=== PATIENT | female | born 2000 | race Hispanic/Latino ===

== ENCOUNTER 2025-05-08 02:33 | Emergency (ER) | payer BC ==
[~2025-05-08] VITALS: Ht 175.3 cm; Wt 90.7 kg
[2025-05-08 02:55] LABS: APPEARANCE,URINE CLOUDY (CLEAR); BILIRUBIN,URINE NEGATIVE (NEGATIVE); COLOR,URINE YELLOW (YELLOW); GLUCOSE, URINE (UA) NEGATIVE (NEGATIVE); KETONES,URINE 5 mg/dL (NEGATIVE); LEUKOCYTE ESTERASE ,URINE 500 Leu/uL (NEGATIVE); NITRATE,URINE NEGATIVE (NEGATIVE); OCCULT BLOOD,URINE NEGATIVE (NEGATIVE); PH,URINE 5.5 (5.0-8.0); PROTEIN,URINE NEGATIVE (NEGATIVE); UROBILINOGEN,URINE 0.2 mg/dL (0.2-1.0)
[2025-05-08 02:56] LABS: ADD UA MICROSCOPIC YES
[2025-05-08 02:57] LABS: HCG,QUALITATIVE URINE NEGATIVE (NEGATIVE)
[2025-05-08 02:58] LABS: BACTERIA,URINE MOD /HPF (None Seen); MUCUS,URINE FEW LPF (None Seen); SQUAMOUS EPITHELIAL CELL,UR MANY /HPF (0-2)
--- NOTE | 2025-05-08 02:59 | ERN ---
ED Note History of Present Illness Stated Complaint: REQUESTING STD TEST Chief Complaint: Sexually Transmitted Disease Time Seen by MD: 02:52 Dictation: This is a 24-year-old female who presented to the emergency room at 2:55 a.m. requesting an STD test. Apparently she has been with a man intimate sexually last week multiple times and found out that he was unfaithful. She stated that she started having foul-smelling bluish green discharge from vagina for the past 2-3 days and she wanted to get herself checked out. No fever chills or rigors. No burning micturition Temperature 98.4 pulse 78 respirations 16 blood pressure 138/84 with a pulse oximetry of 100% on room air She gives a history of previous chlamydial infection as well as gonorrhea Allergies: Coded Allergies: Penicillins (Unverified Allergy, Unknown, 05/08/25) albuterol (Unverified Allergy, Unknown, 05/08/25) Past Medical History Past Medical History: No Pertinent History Surgical History: None Family History: Negative Social History: Negative LMP: April 17, 2025 RN Note Reviewed/Agreed w/PFSH: Yes Review of System Dictation Constitutional: Negative for fever,chills, and weight loss Eyes: Negative for injury, pain,redness, and discharge ENT: Negative for injury,pain or swelling Cardiovascular: Negative for chest pain, palpitations, and edema Respiratory: Negative for shortness of breath, cough, and wheezing, Abdomen/GI: Negative for abdominal pain, nausea, vomiting, diarrhea, and constipation Back: Negative for injury and pain : Negative for injury, bleeding and positive for vaginal discharge MS/Extremity: Negative for injury and deformity Skin: Negative for rash, and discoloration Neuro: Negative for headache, weakness, numbness, tingling, and seizure Psych: Negative for suicide ideation, homicidal ideation, and hallucinations Initial Vital Sign VS Vital Signs Date Time Temp Pulse Resp B/P (MAP) Pulse Ox O2 Delivery O2 Flow Rate FiO2 05/08/25 02:35 98.4 78 16 138/84 100 Room Air Physical Exam Dictation General: awake, alert, NAD Head/Face: Normocephalic, atraumatic Eyes: PERRL, EOMI, vision at baseline ENT: oral cavity clear, TMs clear, no signs of infection Neck: Trachea midline, supple, no nuchal rigidity Cardiovascular: RRR, normal S1/S2, No MRGs, no JVD Respiratory: CTAB, no respiratory distress, No rales or wheezes Abdomen: Soft, non-tender, non-distended, normal bowel sounds, no guarding or rebound. Skin: Warm, dry, normal turgor, no rash MS/Extremity: Pulses equal, no cyanosis, neurovascular intact, FROM Neuro: COAx4, GCS 15, strength 5/5, CN 2-12 intact, normal cerebellar exam, normal gait, Psych: Normal behavior, mood, and affect normal Extremities-trace edema without any palpable cords, Homans sign is negative Results (Laboratory/Radiology) Laboratory/Radiology Laboratory Tests Test 05/08/25 02:47 Urine Color YELLOW (YELLOW) Urine Appearance CLOUDY (CLEAR) H Urine pH 5.5 (5.0-8.0) Urine Specific Amity 1.025 (1.001-1.031) Urine Protein NEGATIVE mg/dL (NEGATIVE) Urine Glucose (UA) NEGATIVE mg/dL (NEGATIVE) Urine Ketones 5 mg/dL (NEGATIVE) H Urine Occult Blood NEGATIVE (NEGATIVE) Urine Nitrate NEGATIVE (NEGATIVE) Urine Bilirubin NEGATIVE mg/dL (NEGATIVE) Urine Urobilinogen 0.2 mg/dL (0.2-1.0) Urine Leukocyte Esterase 500 Britton/uL (NEGATIVE) H Urine RBC 2-5 /HPF (0-1) H Urine WBC 2-5 /HPF (0-1) H Urine Squamous Epithelial Cells MANY /HPF (0-2) Urine Bacteria MOD /HPF (None Seen) Urine HCG, Qualitative NEGATIVE (NEGATIVE) Labs Reviewed?: Yes ED Course ED Course Orders Procedure Category Date Status Time Urinalysis Profile LAB 05/08/25 Complete 02:36 Chlamydia & Gc Pcr GLADIS 05/08/25 In Process 02:36 ,Urine Test LAB 05/08/25 Complete 02:36 Culture Urine GLADIS 05/08/25 In Process 02:56 Ceftriaxone 1g Vial PHA 05/08/25 Complete (Rocephine 1g Inj) 04:30 Azithromycin PHA 05/08/25 Complete (Zithromax) 04:30 Metronidazole (Flagyl) PHA 05/08/25 Complete 04:30 Current Medications Medications (Trade) Dose Ordered Sig/Raul Route PRN Reason Start Time Stop Time Status Last Admin Dose Admin Azithromycin (Zithromax) 500 mg ONCE ONCE PO 05/08/25 04:30 6/9/25 04:31 DC 05/08/25 04:29 Ceftriaxone Sodium (ROCEphine 1G INJ) 1 gm ONCE ONCE IM 05/08/25 04:30 05/08/25 04:31 DC 05/08/25 04:30 Metronidazole (flaGYL) 2,000 mg ONCE ONCE PO 05/08/25 04:30 05/08/25 04:31 DC 05/08/25 04:30 Vital Signs Date Time Temp Pulse Resp B/P (MAP) Pulse Ox O2 Delivery O2 Flow Rate FiO2 05/08/25 02:35 98.4 78 16 138/84 100 Room Air We will perform diagnostic labs, according to the patient's complaint. Once the results are available, will review and personally interpreted the labs to ru le out any acute life-threatening emergency the trach require immediate intervention and treatment. I will then re-evaluate the patient after treatment and diagnostic exams have return to determine whether the patient requires any further testing, can safely be discharged home or need further admission to hospital for additional treatment and evaluation. Urinalysis showed large amounts of leuko esterase but it also has many squamous cells perhaps indicating a poor specimen. The vaginal discharge with previous history of STDs raises a concern for STD again, bacterial vaginitis or none bacterial vaginosis. Given this we will give a dose of Rocephin, azithromycin and metronidazole She needs to follow up and make a call to the ER to get the results of her vagi nal discharge studies. I had a long discussion with her and updated her on a plan of care. Medical Decision Making MDM MDM: Differential diagnosis: Vaginitis vaginosis, fungal infection, sexually olguin smitted infection Rationale: Tests considered and ordered secondary to shared decision making include: Previous outside records reviewed: Old ER visits. Risk of complication and/or morbidity or mortality of patient management: None Medications-Per medication reconciliation Need for hospitalization: Patient does not meet criteria for hospitalization. Need for emergency major/minor surgery: No There are no social concerns with this patient. Prescription drug management Prescriptions will include symptomatic care Patient's prior external medical records from other ER visits were reviewed by me as indicated. Prior testing and results from previous visits were reviewed. Prior tests were taken into account with medical decision making and resource utilization, independent historian/historians were used to obtain complete medical history. I independently interpreted the test that were performed, results were reviewed by me and considered findings on radiology if ordered. Medical management and examination interpretation discussions were had by me with other qualified healthcare professionals as indicated for the patient's care. DX & DISP Disposition: Discharge Departure Impression: Primary Impression: Bacterial vaginosis Additional Impressions: History of chlamydia infection, History of gonorrhea Condition: Stable Additional Instructions: Patient and the caregiver have been informed of all the diagnostic tests and the imaging conducted during the today's visit to the emergency room and has verbalized understanding of the results I have personally reviewed and interpreted all diagnostic exams performed here in the ER today as well as the vital signs documented by the nursing staff. The patient is now being discharged to home and should follow up with the primary care physician or the specialist as directed by the ER staff. Follow-up with primary care provider in 1 to 2 days. Take medications as directed here in the emergency room. Okay to continue home medications unless otherwise discussed during your visit in the emergency room today. Return to your nearest emergency room if symptoms worsen or if there is no improvement. Call 911 if you need immediate assistance. Take Tylenol or Motrin [id number] as needed and if no contraindications are present. Increase oral hydration. A wound culture or urine culture was ordered here in the emergency room department please follow-up with primary care provider and advise them to get repeat ports from our facility. If you had any Cong wrap/splints that were applied here, please do not remove them until you see your primary care or specialty. GUIDO POSADAS MD May 08, 2025 02:59
[2025-05-08] MEDS: AZITHROMYCIN 250 MG TABLET PO ONE (04:29)
[2025-05-08] MEDS: cefTRIAXone 1G VIAL IM ONE (04:30)
[2025-05-08] MEDS: metRONIDazole 500 MG TABLET PO ONE (04:30)
[2025-05-08 04:42] VITALS: BP 130/77; PULSE 80; RESP 18; TEMP 98.5; O2SAT 99
== END 2025-05-08 04:43 | disposition home or self-care (01) ==
LOC: EDH 02:33
DX: N76.0 Acute vaginitis (principal); B96.89 Other specified bacterial agents as the cause of diseases classified elsewhere; Z88.0 Allergy status to penicillin
CPT/HCPCS: 99284; 87086; 87491; 87591; 81001; 81025; 96372; J0696